=== PATIENT | male | born 1940 | race Caucasian/White ===

== ENCOUNTER → 2024-12-21 08:50 | Outpatient (REF) | payer MEDICARE, SELFPAY | LOC: RSP 08:50 | PROVIDERS: ATTENDING PHYSICIAN Internal Medicine | DX: R06.02 Shortness of breath (principal); J34.1 Cyst and mucocele of nose and nasal sinus | CPT/HCPCS: 94727; 94729; 71046; 88738; 94010 ==

== ENCOUNTER → 2025-01-31 10:07 | Outpatient (REF) | payer MEDICARE, SELFPAY | LOC: HWRCS 10:07 | PROVIDERS: ATTENDING PHYSICIAN Internal Medicine Cardiovascular Disease; FAMILY PHYSICIAN Internal Medicine | DX: Z95.1 Presence of aortocoronary bypass graft (principal); I20.89 Other forms of angina pectoris | CPT/HCPCS: 93306 ==

== ENCOUNTER → 2025-02-02 10:56 | Outpatient (REF) | payer MEDICARE, SELFPAY | LOC: HWRCS 10:56 | PROVIDERS: ATTENDING PHYSICIAN Internal Medicine Cardiovascular Disease; FAMILY PHYSICIAN Internal Medicine | DX: Z95.1 Presence of aortocoronary bypass graft (principal); I20.89 Other forms of angina pectoris | CPT/HCPCS: 78452; 93017; A9500; J2785 ==

== ENCOUNTER 2025-02-09 19:03 | Observation (INO) | payer OTHER, SELFPAY ==
[2025-02-09] VITALS (28 sets, daily range): BP systolic 128–205; BP diastolic 65–98; BMI 24.3
[2025-02-09] MEDS: NSS 218 ML IV (08:00)
[2025-02-09 10:03] LABS: ACT-LR - POC 393 Seconds (116-155)
[2025-02-09 10:43] LABS: ACT-LR - POC 368 Seconds (116-155)
--- NOTE | 2025-02-09 14:36 | W.PN.UPDATE ---
Update Note
Progress Note Update
Pt seen post VG-Diagonal artery PCI w/1 JESUS. Right radial site without ht/bleeding, right femoral site with angioseal closure, no ht/bleeding. OOB ambulating. Post EKG NSR w/PACs, 70s. Pt will be on DAPT w/asa, plavix for 1 month, then stop aspirin
d/t aspirin allergy (eczema exacerbation) and remain on plavix only. New start atorvastatin 20mg daily. Cardiac rehab consulted. Followup at [facility] as scheduled. Home later today if groin/radial sites and tele stable.
--- NOTE | 2025-02-09 16:28 | ITS.CL.PN ---
Dining Room Manager - Procedure Note
Procedure
Procedure Note:
CARDIAC CATHETERIZATION REPORT
Date of Procedure: 02/09/2025
Referring: Dr. Max Keane MD
Indication: anginal chest pain, positive cardiac stress test
PROCEDURE(S)
1. left heart catheterization
2. coronary angiography
3. bypass graft angiography
4. PCI with stent to bypass graft
ACCESS:
1. 6F right femoral artery (closure: Angioseal x1)
2. 6F right radial artery (closure: radial band)
CATHETERS
1. 6F JL4
2. 6F JR4
3. 6F JEANNETTE
4. 6F AL1 guide catheter
MODERATE SEDATION: 90 minutes of moderate sedation was utilized. An independent medical technologist was present to assist with and help manage the patient's level of consciousness and physiologic status.
ULTRASOUND GUIDED VASCULAR ACCESS (right radial artery): Ultrasound was utilized for vascular access. The vessel was visualized under ultrasound and noted to be patent. An image of the vessel was stored permanently in the patient's medical record.
Under direct ultrasound guidance, vascular access was obtained using a modified Seldinger technique and a 6 Israeli sheath was placed.
ULTRASOUND GUIDED VASCULAR ACCESS (right common femoral artery): Ultrasound was utilized for vascular access. The vessel was visualized under ultrasound and noted to be patent. An image of the vessel was stored permanently in the patient's medical
record. Under direct ultrasound guidance, vascular access was obtained using a modified Seldinger technique and a 6 Israeli sheath was placed.
HEMODYNAMIC DATA
LV 193/9 (EDP 17) mmHg
AO 188/86 (mean 125) mmHg
CORONARY ANGIOGRAPHY
LM: proximal FUNERAL HOME DIRECTOR
RCA: proximal FUNERAL HOME DIRECTOR
BYPASS GRAFT ANGIOGRAPHY
WILLETT-LAD: patent forming a distal anastomosis with the mid-LAD
DAMIAN-D1: patent forming a distal anastomosis with the D1
SVG-D2: patent forming a distal anastomosis with the inferior branch of D2 which retrograde fills the superior branch of D2. There is a 95% stenosis at the proximal anastomosis of the vein graft. There is TIMI2 flow distally.
LRA-OM: forms a patent anastomosis with the OM. There is mild ostial narrowing but no dampening and preserved contrast reflux during injection with a 6F MPA diagnostic catheter.
SVG-RPDA: patent forming a distal anastomosis with the RPDA which retrograde fills the two RPL branches
PCI to SVG-D2
Heparin was given to achieve ACT greater than 300. The vein graft was engaged with a 6 Israeli AL-1 guide catheter and a Runthrough wire placed in the distal graft. Initial lesion preparation was performed with a 2.0x12 mm semi-compliant balloon
with full expansion. Stenting was performed with a 2.5 x 15 mm Mcneil [place] drug-eluting stent deployed at 16 urbano with careful attention paid to ensuring exact ostial placement. Post-dilation was then performed with a 2.75 x 12 mm noncompliant
balloon throughout the stent taken to 16 urbano distally and 18 urbano proximally. Final angiographic result was excellent with improvement of flow to DAVID-3 and no residual stenosis. 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 This was monitored serially and TTE performed demonstrating no effusion. Thus, this was
confidently felt not to represent a pericardial effusion. He was loaded with 600 mg Plavix. The groin was closed with Angioseal x1 and radial artery hemostasis achieved with TR band.
RADIATION: dose 721 mGy; DAP 54.3 Gy*cm2; fluoroscopy time 46 min
CONCLUSIONS
1. systemic hypertension, mildly elevated left ventricular filling pressure, and no aortic stenosis
2. coronary artery disease as described with patent WILLETT-LAD, DAMIAN-D1, LRA-OM, SVG-RDPA, and 95% occluded SVG-D2.
3. successful PCI with JESUS to the ostial SVG-D2 with placement of a 2.5 x 15 mm Mcneil [place] drug-eluting stent postdilated with a 2.75 mm NC balloon to high-pressure.
RECOMMENDATIONS
1. DAPT with ASA/Plavix for 1 month, then narrow to Plavix monotherapy given patient's ASA intolerance
2. aggressive secondary prevention of coronary artery disease
3. cardiac rehab
Copy to: Dr. Max Keane MD (machine load clerk); Dr. Vishnu Eddy MD (PCP)
Signed: Joselito Del Castillo MD, PhD
[2025-02-09] MEDS: NORVASC 5 MG PO (20:56)
[2025-02-09] MEDS: LIPITOR 20 MG PO (20:57)
--- NOTE | 2025-02-09 23:39 | PTCARENOTE ---
Pt rec'd at change of shift from CCL. Right femoral site with DDI, no hematoma noted. Right radial site with DDI, ecchymotic but soft with good radial pulse. Pt resting comfortably in bed. Didn't want to get up as of this time. Voiding in urinal.
refused Tylenol at HS stating pain in his back has improved from CCL. call powell within reach.
[2025-02-10] MEDS: SYNTHROID 125 MCG PO (06:21)
--- NOTE | 2025-02-10 06:29 | PTCARENOTE ---
Pt oob ambulated in [place] with nursing. gait steady. Right groin drsg remains dry and intact post ambulation.
[2025-02-10] MEDS: PLAVIX 75 MG PO (08:13)
[2025-02-10] MEDS: LOW STRENGTH ASPIRIN 81 MG PO (08:13)
--- NOTE | 2025-02-10 09:13 | W.PN.CD ---
Addendum entered and electronically signed by Melvin Ocampo MD 02/10/25 10:02:
84 yo male with PMH of CAD s/p PCI on 02/09. Admitted due to groin hematoma. No chest pain. Exam with RRR, no murmurs, no edema. Groin site stable. Tele: no arrhythma. Continue DAPT. Discharge planning.
Original Note:
Today's Communication / Plan
-
d/c home
Impression / Plan
-
CAD:
- s/p PCI JESUS-ostial SVG-D2
-plan asa x 1 month as it makes his eczema worse, then plavix monotherapy
-R groin stable, no hematoma, R radial no hematoma
hyperlipidemia:
-stable on statin
HTN: stable on meds
dispo:
-d/c home
Physical Exam
Vital Signs/Labs
Vital Signs
Temp Pulse Resp BP Pulse Ox
97.6 F 77 20 128/65 98
02/10/25 07:55 02/09/25 22:33 02/10/25 07:55 02/09/25 22:33 02/10/25 07:55
02/09/25 02/10/25 02/11/25
06:59 06:59 06:59
Actual Weight 72.5 kg
Physical Exam
Cardiovascular: Rhythm & rate is regular and Systolic murmur present (1/6 WOODY)
Respiratory: Respiratory effort normal and Lungs clear to auscul.
Neuro/Psych: AO x 3
Other: Cath Site (R groin no hematoma, R radial ecchymotic, no hematoma, mild surface bleeding with dressing removal, pressure held and bandaid applied. ) and Cardiac Device Site
Data Reviewed
-
Date of Service: February 10, 2025
EKG: Other (Tele: NSR 70-80's )
--- NOTE | 2025-02-10 09:21 | W.DS.TRANS ---
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
-
Discharge Instructions:
Discharge Diagnosis/Procedures Angioplasty and stent to Vein graft-Diagonal
artery
Diet Low Cholesterol
Driving Restrictions No driving for 24 hours
Other Services Cardiac Rehab
Instructions:
Stand-Alone Forms: DC Inst - Same Day PCI
Changes to Home Medications: Yes
Discharge Medications:
DC Medications w/original date entered in PDV
amlodipine 5 mg tablet 5 mg PO QPM 02/09/25
aspirin 81 mg chewable tablet 81 mg PO DAILY 02/09/25
atorvastatin 20 mg tablet 20 mg PO QPM #90 tabs 02/09/25
cholecalciferol (vitamin D3) 25 mcg (1,000 unit) capsule (Vitamin D3) 25 mcg PO QPM 02/09/25
clopidogrel 75 mg tablet 75 mg PO DAILY #90 tabs 02/09/25
levothyroxine 125 mcg tablet 125 mcg PO DAILY 02/09/25
multivitamin 1 tab PO QPM 02/09/25
soluble corn fiber-inulin 1.7 gram chewable tablet (Metamucil (inulin-corn fiber)) 1 tab PO QPM 02/09/25
vitamin B complex 1 cap PO QPM 02/09/25
Home Medication Changes
atorvastatin 20 mg tablet 20 mg PO QPM #90 tabs 02/09/25
clopidogrel 75 mg tablet 75 mg PO DAILY #90 tabs 02/09/25
Pending Results: No
[2025-02-10 11:11] VITALS: BP 122/76
== END 2025-02-10 13:41 | disposition home or self-care (01) ==
LOC: IVU 19:03
PROVIDERS: ADMITTING PHYSICIAN Internal Medicine; ATTENDING PHYSICIAN Student in an Organized Health Care Education/Training Program; FAMILY PHYSICIAN Internal Medicine
DX: I25.719 Atherosclerosis of autologous vein coronary artery bypass graft(s) with unspecified angina pectoris (principal); R07.9 Chest pain, unspecified; I49.1 Atrial premature depolarization; I10 Essential (primary) hypertension; E78.5 Hyperlipidemia, unspecified; Z95.1 Presence of aortocoronary bypass graft; Z95.5 Presence of coronary angioplasty implant and graft; L30.9 Dermatitis, unspecified
CPT/HCPCS: 92943; 93308; 76937; 85347; 93005; 93459; 99152; 99153; C1725; C1760; C1769; C1874; C1887; C1894; C9604; G0378; Q9967

== ENCOUNTER 2025-03-19 15:08 | Outpatient (RCR) | payer MEDICARE, SELFPAY | END 2025-03-19 23:59 | disposition home or self-care (01) | LOC: CRHB 15:08 | PROVIDERS: ATTENDING PHYSICIAN Internal Medicine | DX: I25.10 Atherosclerotic heart disease of native coronary artery without angina pectoris (principal); Z95.5 Presence of coronary angioplasty implant and graft | CPT/HCPCS: G0422; G0423 ==

== ENCOUNTER 2025-03-30 09:36 | Outpatient (RCR) | payer MEDICARE, SELFPAY | END 2025-03-30 23:59 | disposition home or self-care (01) | LOC: CRHB 09:36 | PROVIDERS: ATTENDING PHYSICIAN Internal Medicine | DX: I25.10 Atherosclerotic heart disease of native coronary artery without angina pectoris (principal); Z95.5 Presence of coronary angioplasty implant and graft | CPT/HCPCS: G0422; G0423 ==

== ENCOUNTER → 2025-04-06 11:40 | Outpatient (REF) | payer MEDICARE, SELFPAY | LOC: HWRCS 11:40 | PROVIDERS: ATTENDING PHYSICIAN Internal Medicine Cardiovascular Disease; FAMILY PHYSICIAN Internal Medicine | DX: R07.9 Chest pain, unspecified (principal); I10 Essential (primary) hypertension; Z95.5 Presence of coronary angioplasty implant and graft | CPT/HCPCS: 78452; 93017; A9500 ==

== ENCOUNTER 2025-05-21 10:06 | Outpatient (RCR) | payer MEDICARE, SELFPAY | END 2025-05-21 23:59 | disposition home or self-care (01) | LOC: CRHB 10:06 | PROVIDERS: ATTENDING PHYSICIAN Internal Medicine | DX: I25.10 Atherosclerotic heart disease of native coronary artery without angina pectoris (principal); Z95.5 Presence of coronary angioplasty implant and graft | CPT/HCPCS: G0422; G0423 ==

== ENCOUNTER 2025-06-20 09:37 | Outpatient (RCR) | payer MEDICARE, SELFPAY | END 2025-06-20 23:59 | disposition home or self-care (01) | LOC: CRHB 09:37 | PROVIDERS: ATTENDING PHYSICIAN Internal Medicine | DX: I25.10 Atherosclerotic heart disease of native coronary artery without angina pectoris (principal); Z95.5 Presence of coronary angioplasty implant and graft | CPT/HCPCS: G0422; G0423 ==

== ENCOUNTER 2025-07-09 10:47 | Outpatient (RCR) | payer MEDICARE, SELFPAY | END 2025-07-10 16:20 | disposition home or self-care (01) | LOC: CRHB 10:47 | PROVIDERS: ATTENDING PHYSICIAN Internal Medicine | DX: Z95.5 Presence of coronary angioplasty implant and graft (principal) | CPT/HCPCS: G0422; G0423 ==

== ENCOUNTER 2025-07-11 07:23 | Day surgery (SDC) | payer MEDICARE, SELFPAY ==
[2025-07-10 13:14] VITALS: BMI 26.2
[2025-07-10 13:45] LABS: Hematocrit 41.5 % (39.0-52.0); Hemoglobin 13.8 g/dL (13.0-18.0); Mean Corp Hgb Conc. 33.3 g/dL (33.0-37.0); Mean Corpuscular Volume 82.5 fL (80.0-94.0); Nucleated Red Blood Cells % 0 % (-); Platelet Count 402 10^3/uL (130-400); Red Cell Dist. Width 13.5 % (11.5-14.5)
[2025-07-10 14:16] LABS: ALT (SGPT) 24 U/L (0-50); AST (SGOT) 20 U/L (17-59); Albumin 4.0 g/dl (3.5-5.0); Alkaline Phosphatase 61 U/L (38-126); Blood Urea Nitrogen 16 mg/dl (9-20); Calcium 9.3 mg/dl (8.4-10.2); Carbon Dioxide 30 mmol/L (22-30); Chloride 99 mmol/L (98-107); Estimated Creatinine Clearance 47 ml/min; Glucose 91 mg/dl (70-99); Potassium 4.7 mmol/L (3.5-5.1); Sodium 135 mmol/L (135-145); Total Protein 6.5 g/dl (6.3-8.2); eGFR > 60.00
[2025-07-11] VITALS (29 sets, daily range): BP systolic 135–195; BP diastolic 61–107; BMI 25.9
[2025-07-11] MEDS: LOW STRENGTH ASPIRIN 81 MG PO (08:06)
[2025-07-11] MEDS: NSS 225 ML IV (08:07)
[2025-07-11 11:00] LABS: ACT-LR - POC > 397 Seconds (116-155)
[2025-07-11] MEDS: NSS 1000 IV (11:27)
--- NOTE | 2025-07-11 11:34 | ITS.CL.ANGIO ---
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
Angioplasty
Procedure Report:
CARDIAC CATHETERIZATION REPORT
Date of Procedure: 07/11/2025
Referring: Max Keane M.D.
INDICATION: Known coronary artery disease status post prior bypass and PCI, recurrent angina.
PROCEDURE:
1. Left heart catheterization.
2. Coronary angiography.
3. Bypass angiography.
4. Successful PCI of the SVG to D2.
A total of 85 minutes of procedural/moderate sedation was utilized. An independent medical sociologist was present to assist with and help manage the patient's level of consciousness and physiologic status.
ACCESS:
1. 6 Barbadian left common femoral artery using a modified Seldinger technique with a micropuncture kit under ultrasound guidance.
CATHETERS:
1. 5 Barbadian JL 4.
2. 5 Barbadian JR4.
3. 5 Barbadian JEANNETTE.
4. 5 Barbadian AR-1.
5. 6 Barbadian JR4 guiding catheter.
HEMODYNAMIC DATA
Weight (kg): 74.8
AO (s/d/x, mmHg): 159/69/102
LV (s/x, mmHg): 176/14
AV Gradient (x, mmHg): 17
LEFT VENTRICULOGRAPHY: Not performed.
CORONARY ANGIOGRAPHY
Dominance: Right.
Left Main: Bifurcating vessel that is chronically totally occluded in its origin.
LAD: Normal size vessel giving rise to at least 2 diagonals. The vessel is diffusely diseased in its entire proximal and midportion. The distal vessel supplied by a patent WILLETT graft. There is a 90% lesion in the apical LAD after the
anastomosis of the WILLETT graft. The first diagonal is supplied by a patent DAMIAN graft. The second diagonal is supplied by a patent SVG.
Ramus: Congenitally absent.
Circumflex: Nondominant vessel that is chronically totally occluded in its proximal margin. The obtuse marginal is supplied by a patent radial artery graft.
RCA: Normal size, dominant vessel that is chronically totally occluded at its origin extending down into the distal RCA, recannulating at the bifurcation of the RPDA and RPL. The RPDA and distal RPL are supplied by a patent vein graft.
BYPASS GRAFT ANGIOGRAPHY
WILLETT to LAD: Normal size graft that is technically challenging to engage with end-to-side anastomosis to the distal LAD. There is no evidence of stenosis or graft degeneration. As noted, there is a 90% lesion in the apical LAD distal to the WILLETT
anastomosis.
DAMIAN to D1: Nonselectively imaged due to severe subclavian tortuosity. Normal size graft with end-to-side anastomosis to the first diagonal. There is no evidence of stenosis or graft degeneration.
LRA to OM: Normal size graft with end-to-side anastomosis to the obtuse marginal. There is no evidence of stenosis or graft degeneration.
SVG to D2: Normal size graft with end-to-side anastomosis to the second diagonal. Patent stents are observed in the ostium/proximal graft. There is a new, 90% lesion in the body of the graft.
SVG to RCA: Normal size graft with end-to-side anastomosis to the RPDA. The proximal graft is severely tortuous. There is no evidence of stenosis or graft degeneration.
INTERVENTION(S)
1. Successful PCI of the 90% lesion in the SVG to D2 (Medtronic [place] 2.5 x 15 JESUS, postdilated with a 2.5 NC balloon) with reduction in stenosis to 0%, maintaining DAVID-3 flow.
Narrative:
The decision was made to proceed with percutaneous coronary intervention. The diagnostic catheter was removed over a wire and a 6Fr JR4 guiding catheter was advanced to the aortic root and seated in the ostium of the SVG to second diagonal.
Additional heparin was given and a Power Turn Flex wire was advanced into the second diagonal. Unfortunately, the angulation of the catheter was significantly distorted by the presence of a coronary wire, which functionally disengaged the catheter
from the vessel. A 6 Barbadian GuideLiner was advanced over the wire and into the ostium of the vessel to provide adequate angiographic visualization. The 90% mid graft lesion was predilated with a 2.0 x 12 semi-compliant balloon to 12 urbano. The
semi-compliant balloon was removed and a Medtronic [place] Happy 2.5 x 15 drug-eluting stent was advanced. The stent was deployed at 12 atmospheres. The stent balloon was removed. A 2.5 x 12 noncompliant balloon was advanced into the stent and the
stent was postdilated to 14 atmospheres. Angiography was performed in orthogonal views, confirming good stent expansion and an excellent angiographic result. The coronary wire was withdrawn and the guide was disengaged from the artery. The catheter
was removed over a standard J-wire.
Closure Device: Manual pressure for the left common femoral artery.
Radiation (mGy): 750.78
DAP (cm2.Gy): 63.1451
Fluoroscopy time (minutes): 27.8
CONCLUSIONS
1. Right dominant circulation with chronic total occlusion of the left main coronary artery and RCA, status post prior bypass (patent WILLETT to LAD, patent DAMIAN to D1, patent SVG to RPDA, patent LRA to OM and patent SVG to D2) with a 90% lesion in
the apical LAD distal to the WILLETT anastomosis and prior PCI of the ostium of the SVG to D2, now with a new 90% lesion in the body of the SVG to D2 graft, status post successful PCI (Medtronic [place] 2.5 x 15 JESUS, postdilated with a 2.5 NC
balloon) with reduction in stenosis to 0%, maintaining DAVID-3 flow.
2. Mildly elevated filling pressures (LVEDP = 14 mmHg at 74.8 kg).
3. Probably mild aortic valve stenosis (mean gradient 17 mmHg).
4. Severe right subclavian tortuosity making the DAMIAN graft nearly impossible to engage from a femoral approach.
5. Left subclavian tortuosity making WILLETT engagement challenging.
RECOMMENDATIONS:
1. Expectant management after cardiac catheterization via left common femoral approach.
2. Limited weight bearing for one week.
3. The patient was reloaded with clopidogrel 300 mg daily and should remain on clopidogrel 75 mg daily for at least 1 year.
4. OMT/GDMT as hemodynamics tolerate.
5. Aggressive secondary prevention. He is intolerant of statins. Goal LDL <55.
6. Referral to cardiac rehab.
7. Deferred management of the 90% apical LAD lesion given its relatively small coronary territory and the technical challenges inherent in intervening on an LAD through a WILLETT graft. If the patient has recurrent chest discomfort/angina on
maximized medical therapy, we can consider repeat cardiac catheterization and revascularization of the apical LAD.
8. The patient will be monitored overnight.
Copy to: Max Keane M.D., Vishnu Eddy M.D.
Felix Li DO, FACC, FACP
[2025-07-11 11:38] LABS: ACT-LR - POC > 397 Seconds (116-155)
[2025-07-11 12:12] LABS: ACT-LR - POC 332 Seconds (116-155)
[2025-07-11] MEDS: NORVASC 5 MG PO (12:35)
[2025-07-11 13:20] LABS: ACT-LR - POC 252 Seconds (116-155)
[2025-07-11 14:22] LABS: ACT-LR - POC 219 Seconds (116-155)
[2025-07-11 16:00] LABS: ACT-LR - POC 161 Seconds (116-155)
--- NOTE | 2025-07-11 16:13 | CM ---
Reviewed chart. Met with and Mrs. Parada to review discharge plans. He states prior to admission he resides with his spouse in a fourth floor apartment. He states he has an elevator. He states he resides at [facility].
He states he has been there for ten years. He states prior to admission he was independent with ambulation and adls. He states he does not have any DME in the home. He states he has a prescription plan.The discharge plan is to return home with his
spouse when medically stable.
[2025-07-11] MEDS: SUBLIMAZE 25 MCG IV (16:17)
[2025-07-11] MEDS: TYLENOL 650 MG PO ×2 (18:16→22:25)
--- NOTE | 2025-07-11 19:24 | PTCARENOTE ---
Pt admitted from recovery area post cardiac cath done via left femoral artery, arterial sheath in place. Pt given sublimaze prior to sheath removal at 16:39, pressure held for a total of 30 minutes, sandbag over left groin for small hematoma until
17:40 , femoral site now dry and intact, no sign of hematoma. Pt voiding without difficulty. Telemetry shows sinus rhythm, SBP 130-160's. Plan for close monitoring of left groin, bedrest until 21:10.
[2025-07-12] VITALS (9 sets, daily range): BP systolic 73–165; BP diastolic 43–81
--- NOTE | 2025-07-12 01:27 | PTCARENOTE ---
assumed care of patient at the change of shift. AAOx3. off bedrest at 5- oob to the bathroom. steady on his feet. no issues. SR on [id number]. bp stable. L groin site intact. soft. + pulses. patient denies any cp. tylenol given for lower back
pain- see mar. reviewed plan of care with patient and verbalized understanding. call powell within reach. makes needs known.
[2025-07-12 04:59] LABS: Hematocrit 37.3 % (39.0-52.0); Hemoglobin 12.9 g/dL (13.0-18.0); Mean Corp Hgb Conc. 34.6 g/dL (33.0-37.0); Mean Corpuscular Volume 79.9 fL (80.0-94.0); Platelet Count 350 10^3/uL (130-400); Red Cell Dist. Width 13.3 % (11.5-14.5)
[2025-07-12 05:32] LABS: Blood Urea Nitrogen 14 mg/dl (9-20); Calcium 8.6 mg/dl (8.4-10.2); Carbon Dioxide 23 mmol/L (22-30); Chloride 102 mmol/L (98-107); Estimated Creatinine Clearance 73 ml/min; Glucose 97 mg/dl (70-99); HDL Cholesterol 35 mg/dl; LDL Cholesterol, Calculated 111 mg/dl; Potassium 4.0 mmol/L (3.5-5.1); Sodium 130 mmol/L (135-145); Very Low Density Lipoprotein 17 mg/dl (0-30); eGFR > 60.00
[2025-07-12] MEDS: SYNTHROID 125 MCG PO (06:50)
--- NOTE | 2025-07-12 08:08 | W.PN.CD ---
Today's Communication / Plan
-
Monitor BP for one hour after fluid bolus.
If BP remains stable, we can consider discharge.
Patient may benefit from PCSK9i as an outpatient.
Referral to cardiac rehab.
If the patient has recurrent angina on maximum OMT, we can consider PCI of the apical LAD
Discharge planning.
Impression / Plan
-
Impression/Plan: 84 y/o male with HTN, HLD, mild/moderate , NIDDM and CAD s/p prior CABG (WILLETT to LAD, DAMIAN to D1, SVG to D2, LRA to OM and SVG to RCA) and prior PCI to SVG to D2 admitted after catheterization for recurrent angina revealed new
90% lesion in the SVG to D2, now s/p PCI.
#CAD/Unstable Angina
-Acute on chronic, progressive.
-S/P CABG (WILLETT to LAD, DAMIAN to D1, SVG to D2, LRA to OM, SVG to RCA) and prior PCI to ostium of SVG to D2 (Medtronic Nick 2.5 x 15 JESUS) in January 2025.
-Repeat cath showed new 90% lesion in SVG-D2 mid graft and a previously underappreciated 90% lesion in apical LAD, distal to WILLETT anastomosis.
-S/P PCI to the 90% SVG-D2 lesion (Medtronic [place] 2.5 x 15 JESUS).
-Decision was made manage the apical LAD lesion medically for the moment as the subtended territory is small and there is significant technical challenge to PCI through the WILLETT graft. If he has angina in spite of revascularization of SVG-D2 and
OMT, we will consider PCI of the dLAD.
-Continue OMT as hemodynamics will tolerate.
-Intolerant of statins.
-Referral to cardiac rehab.
#HTN
-Chronic.
-Transient hypotension this morning (73/43 @ 10:10). Patient did receive amlodipine and isosorbide mononitrate.
-Hypertensive yesterday.
-BP responded to fluids.
#HLD
-Chronic, intolerant of statins.
-Total cholesterol = 163, LDL = 111, HDL = 35, Triglycerides = 89.
-Patient may benefit from PCSK9i as an outpatient.
-Goal LDL < 55.
#PPx
-Ambulation for DVT/VTE.
-No role for PPI at this time.
#Dispo
-Observation status.
-Full code.
-Monitor BP for at least one hour. If BP remains stable, the patient can be discharged.
Subjective/Interval History:
Cath yesterday showed new 90% lesion in SVG-D2 graft, s/p successful PCI and 90% lesion in distal/apical LAD, deferred to medical management.
Transiently hypotensive this morning, responded to volume bolus.
New leukocytosis (17k).
Otherwise feels well.
DATA:
Cardiac Catheterization, 07/11/2025:
CONCLUSIONS
1. Right dominant circulation with chronic total occlusion of the left main coronary artery and RCA, status post prior bypass (patent WILLETT to LAD, patent DAMIAN to D1, patent SVG to RPDA, patent LRA to OM and patent SVG to D2) with a 90% lesion in
the apical LAD distal to the WILLETT anastomosis and prior PCI of the ostium of the SVG to D2, now with a new 90% lesion in the body of the SVG to D2 graft, status post successful PCI (Medtronic Nick [place] 2.5 x 15 JESUS, postdilated with a 2.5 NC
balloon) with reduction in stenosis to 0%, maintaining DAVID-3 flow.
2. Mildly elevated filling pressures (LVEDP = 14 mmHg at 74.8 kg).
3. Probably mild aortic valve stenosis (mean gradient 17 mmHg).
4. Severe right subclavian tortuosity making the DAMIAN graft nearly impossible to engage from a femoral approach.
5. Left subclavian tortuosity making WILLETT engagement challenging.
Physical Exam
Vital Signs/Labs
Vital Signs
Temp Pulse Resp BP Pulse Ox
36.6 C 71 20 165/71 98
07/12/25 07:39 07/12/25 07:35 07/12/25 07:39 07/12/25 07:35 07/12/25 07:39
07/10/25 07/11/25 07/12/25
11:59 11:59 11:59
Actual Weight 75 kg
07/12/25 04:41
07/12/25 04:41
Triglycerides 89 mg/dl (10-149) 07/12/25 04:41
LDL Cholesterol, Calc 111 mg/dl 07/12/25 04:41
VLDL Cholesterol, Calc 17 mg/dl (0-30) 07/12/25 04:41
HDL Cholesterol 35 mg/dl 07/12/25 04:41
Physical Exam
Constitutional: No acute distress and Comfortable
EENT: Anicteric and Moist mucous membranes
Cardiovascular: Rhythm & rate is regular, Pedal edema is absent, JVD pressure is normal, S1S2 is normal and Murmur/rub/gallop absent
Respiratory: Respiratory effort normal, Lungs clear to auscul., Wheeze Absent, Crackles Absent and Rhonchi Absent
GI: Soft, Distention absent, Flat, Non tender and Normal bowel sounds
Neuro/Psych: AO x 3
Other: Cath Site (Left femoral access site is C/D/I.)
Data Reviewed
-
Date of Service: July 12, 2025
Medical Decision Making: Reviewed Test Results, Independent Historian Assessment and Test Interpretation
EKG: Tracing Personally Visualized and interpreted and Report Reviewed by me
Medical Tests (PFT, Pathology etc): Image Personally Visualized and interpreted, Report Reviewed by me, Discussed with Patient and Discussed with Family
Labs: Labs Reviewed by me
Old Records: Reviewed
[2025-07-12] MEDS: IMDUR (EXTENDED RELEASE) 30 MG PO (08:34)
[2025-07-12] MEDS: PLAVIX 75 MG PO (08:34)
[2025-07-12] MEDS: NORVASC 5 MG PO (08:35)
[2025-07-12] MEDS: LOW STRENGTH ASPIRIN 81 MG PO (08:35)
[2025-07-12] MEDS: NSS 500 IV (10:05)
--- NOTE | 2025-07-12 10:42 | PTCARENOTE ---
Pt resting in recliner, reported feeling like he had a very low BP, 73/43. Pt yawning, felt 'unwell'. Pt reclined fully in chair, given 500mls IV fluid per Jillian Ricci NP. BP improved over half an hour to 126/72. Pt states this happens sometimes at
home. Pt received imdur 30mgs and norvasc 5mgs this morning. Left femoral site intact, no hematoma.
--- NOTE | 2025-07-12 12:52 | W.DS.TRANS ---
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
-
Discharge Instructions:
Discharge Diagnosis/Procedures Angioplasty with stent to Vein graft to D2
Diet Low Cholesterol
Driving Restrictions No driving for 24 hours
Other Services Cardiac Rehab
Instructions:
Stand-Alone Forms: DC Instructions- Cath/EP Lab
Changes to Home Medications: No
Discharge Medications:
DC Medications w/original date entered in [facility]
amlodipine 5 mg tablet 5 mg PO DAILY Blood Pressure 02/09/25
aspirin 81 mg chewable tablet 81 mg PO DAILY Blood Clot Prevention/Tx 02/09/25
cholecalciferol (vitamin D3) 25 mcg (1,000 unit) capsule (Vitamin D3) 25 mcg PO QPM Supplement 02/09/25
clopidogrel 75 mg tablet 75 mg PO DAILY #90 tabs 02/09/25
multivitamin 1 tab PO QPM Supplement 02/09/25
soluble corn fiber-inulin 1.7 gram chewable tablet (Metamucil (inulin-corn fiber)) 1 tab PO QPM 02/09/25
vitamin B complex 1 cap PO QPM Supplement 02/09/25
isosorbide mononitrate 30 mg tablet,extended release 24 hr 30 mg PO DAILY 07/06/25
levothyroxine 125 mcg tablet 125 mcg PO DAILY 07/06/25
cetirizine 10 mg tablet (Zyrtec) 10 mg PO DAILY PRN allergy symptoms 07/11/25
nitroglycerin 0.4 mg sublingual tablet 0.4 mg sublingual Q5-15M PRN chest pain 07/11/25
vitamin B complex 1 tab PO DAILY 07/11/25
Home Medication Changes
Pending Results: No
--- NOTE | 2025-07-12 13:42 | SUR.OPER ---
Pt up walking in halls with RN, BP improved back to baseline. Pt stated he takes medicines at different times at home and the plan is to do this. Pt seen by . Telemetry and IV device removed. Discharge instructions reviewed with pt and his
regarding medications and their possible side effects, wound care, activity and driving restrictions, reproting cares and concerns and follow up appt's. Very good understanding verbalized. pt escorted oout via wheelchair and discharged to home.
--- NOTE | 2025-07-12 14:13 | CM ---
Reviewed chart. . Prior to admission he resides with his spouse in a fourth floor apartment. he has an elevator. He resides at [facility]. He has been there for ten years. He prior to admission he was independent with
ambulation and adls. He does not have any DME in the home. He has a prescription plan.The discharge plan is to return home with his spouse when medically stable.
Initialized on 07/11/25 16:13 - END OF NOTE
== END 2025-07-12 14:03 | disposition home or self-care (01) ==
LOC: CATH 07:23
PROVIDERS: Nurse Practitioner Adult Health; ATTENDING PHYSICIAN Internal Medicine Cardiovascular Disease; FAMILY PHYSICIAN Internal Medicine; OTHER PHYSICIAN Internal Medicine Cardiovascular Disease
DX: I25.710 Atherosclerosis of autologous vein coronary artery bypass graft(s) with unstable angina pectoris (principal); I25.110 Atherosclerotic heart disease of native coronary artery with unstable angina pectoris; I25.82 Chronic total occlusion of coronary artery; Z95.1 Presence of aortocoronary bypass graft; I10 Essential (primary) hypertension; E78.5 Hyperlipidemia, unspecified; I35.0 Nonrheumatic aortic (valve) stenosis; E89.0 Postprocedural hypothyroidism; Z85.850 Personal history of malignant neoplasm of thyroid; K21.9 Gastro-esophageal reflux disease without esophagitis; N40.0 Benign prostatic hyperplasia without lower urinary tract symptoms; E11.9 Type 2 diabetes mellitus without complications; I49.8 Other specified cardiac arrhythmias; M19.90 Unspecified osteoarthritis, unspecified site; Z79.02 Long term (current) use of antithrombotics/antiplatelets; Z79.82 Long term (current) use of aspirin; Z79.890 Hormone replacement therapy; Z79.899 Other long term (current) drug therapy; Z86.0102 Personal history of hyperplastic colon polyps; Z86.018 Personal history of other benign neoplasm; Z87.891 Personal history of nicotine dependence; Z88.6 Allergy status to analgesic agent; Z95.5 Presence of coronary angioplasty implant and graft; Z90.79 Acquired absence of other genital organ(s); Z90.89 Acquired absence of other organs; I95.9 Hypotension, unspecified; K22.0 Achalasia of cardia
CPT/HCPCS: 99152; 99153; 36415; 80048; 80053; 80061; 85025; 85027; 85347; 93005; 93459; C1725; C1769; C1874; C1894; C9604; Q9967

== ENCOUNTER 2025-08-20 10:12 | Outpatient (RCR) | payer MEDICARE, SELFPAY | END 2025-08-20 23:59 | disposition home or self-care (01) | LOC: CRHB 10:12 | PROVIDERS: ATTENDING PHYSICIAN Internal Medicine Cardiovascular Disease; FAMILY PHYSICIAN Internal Medicine | DX: I25.10 Atherosclerotic heart disease of native coronary artery without angina pectoris (principal); Z95.5 Presence of coronary angioplasty implant and graft | CPT/HCPCS: G0422; G0423 ==

== ENCOUNTER 2025-09-21 10:37 | Outpatient (RCR) | payer MEDICARE, SELFPAY | END 2025-09-21 23:59 | disposition home or self-care (01) | LOC: CRHB 10:37 | PROVIDERS: ATTENDING PHYSICIAN Internal Medicine Cardiovascular Disease; FAMILY PHYSICIAN Internal Medicine | DX: I25.10 Atherosclerotic heart disease of native coronary artery without angina pectoris (principal); Z95.5 Presence of coronary angioplasty implant and graft | CPT/HCPCS: G0422; G0423 ==

== ENCOUNTER 2025-10-19 10:01 | Outpatient (RCR) | payer MEDICARE, SELFPAY | END 2025-10-19 23:59 | disposition home or self-care (01) | LOC: CRHB 10:01 | PROVIDERS: ATTENDING PHYSICIAN Internal Medicine Cardiovascular Disease; FAMILY PHYSICIAN Internal Medicine | DX: I25.10 Atherosclerotic heart disease of native coronary artery without angina pectoris (principal); Z95.5 Presence of coronary angioplasty implant and graft | CPT/HCPCS: G0422; G0423 ==

== ENCOUNTER → 2025-11-12 11:06 | Outpatient (REF) | payer MEDICARE, SELFPAY ==
[2025-11-12 16:01] LABS: ALT (SGPT) 19 U/L (0-50); AST (SGOT) 22 U/L (17-59); Albumin 4.0 g/dl (3.5-5.0); Alkaline Phosphatase 46 U/L (38-126); Blood Urea Nitrogen 22 mg/dl (9-20); Calcium 9.4 mg/dl (8.4-10.2); Carbon Dioxide 27 mmol/L (22-30); Chloride 98 mmol/L (98-107); Glucose 79 mg/dl (70-99); Potassium 4.6 mmol/L (3.5-5.1); Sodium 132 mmol/L (135-145); Total Protein 6.6 g/dl (6.3-8.2); eGFR 59.26
== END ==
LOC: HWLAB 11:06
PROVIDERS: ATTENDING PHYSICIAN Internal Medicine Cardiovascular Disease; FAMILY PHYSICIAN Nurse Practitioner Acute Care
DX: Z01.812 Encounter for preprocedural laboratory examination (principal); I10 Essential (primary) hypertension; I25.9 Chronic ischemic heart disease, unspecified
CPT/HCPCS: 36415; 80053

== ENCOUNTER → 2025-11-13 16:15 | Outpatient (REF) | payer OTHER, SELFPAY | LOC: RAD 16:15 | PROVIDERS: ATTENDING PHYSICIAN Internal Medicine Cardiovascular Disease; FAMILY PHYSICIAN Internal Medicine | DX: J44.9 Chronic obstructive pulmonary disease, unspecified (principal); J98.4 Other disorders of lung | CPT/HCPCS: 71260; Q9967 ==

== ENCOUNTER 2025-11-16 09:26 | Outpatient (RCR) | payer MEDICARE, SELFPAY | END 2025-11-16 10:15 | disposition home or self-care (01) | LOC: CRHB 09:26 | PROVIDERS: ATTENDING PHYSICIAN Internal Medicine Cardiovascular Disease; FAMILY PHYSICIAN Internal Medicine | DX: I25.10 Atherosclerotic heart disease of native coronary artery without angina pectoris (principal); Z95.5 Presence of coronary angioplasty implant and graft | CPT/HCPCS: G0422; G0423 ==